=== PATIENT | female | born 1980 | race Caucasian/White ===

== ENCOUNTER 2023-12-29 22:49 | Emergency (ER) | payer BC, SELFPAY ==
[2023-12-29 22:52] VITALS: BP 114/63
--- NOTE | 2023-12-29 23:33 | ED.GENMED ---
History of Present Illness
General
Chief Complaint: Abdominal Pain
Source: patient
Exam Limitations: none
Time Seen by Provider: 12/29/23 23:24
History of Present Illness
History of Present Illness:
See MDM
Past History
Past History
ED Past Medical History: None
ED Past Surgical History: None
Social History
Tobacco: Non-smoker
Alcohol: None
Phy Exam
Physical Exam
Physical Exam:
See MDM
Course
Vital Signs
Initial and Last Documented VS:
Initial Vital Signs
Temp Pulse Resp BP Pulse Ox
98.1 F 69 16 114/63 100
12/29/23 22:52 12/29/23 22:52 12/29/23 22:52 12/29/23 22:52 12/29/23 22:52
Last Documented Vital Signs
Temp Pulse Resp BP Pulse Ox
98.1 F 61 16 114/82 100
12/29/23 22:52 12/29/23 23:35 12/29/23 23:35 12/29/23 23:35 12/29/23 23:35
MDM/Problems Addressed
Differential Diagnosis Includes:
HPI and MDM Narrative:
43-year-old female presenting with sudden right lower quadrant abdominal pain. This reminds her of a prior episode where she went to the hospital and was diagnosed with hemorrhagic cyst. [employer] believes she has intermittent ovarian torsion. Patient
was brought back immediately to the emergency department room. When I evaluated her, patient states all her symptoms are improving. I did suggest ultrasound blood work but since symptoms are improving, I think it is reasonable to have this done as
an outpatient. Patient states she wants to go home
Physical exam
General: Well appearing and non-toxic
HEENT: protecting airway
Neck: appears supple
CV: No evidence of cyanosis
Resp: No accessory muscle use
Abd: Non-distended. No significant tenderness
Extremities: No deformities
Neuro: alert
Psych: Normal affect
Skin: Intact
Problems Addressed including Acute and Chronic Conditions affecting care:
1. Resolved right lower quadrant abdominal pain
Acuity: acute
Prognosis: stable
Details: Given the sudden onset and sudden resolution, discussed likely intermittent ovarian torsion. This has been discussed by her [employer] in the past
Differential Diagnosis (but not limited to): Acute appendicitis, intermittent ovarian torsion, ruptured ovarian cyst
Testing considered: Pelvic ultrasound
Drug therapy (if applicable): OTC meds, please see d/c instruction regarding Rx drugs
Amount and/or Complexity of Data Reviewed
Clinical info obtained from: Patient
External data reviewed: N/A
Labs I independently reviewed (but not limited to): N/A
Radiology: N/A
Pulse Ox: not hypoxic
EKG independently reviewed: N/A
Telephone Answering Service Operator: N/A
Critical Care: N/A
Risk of Complication:
Social Determinants of health: Good social support
Discussed with other providers: N/A
Escalation of Care includes Admit/Obs: After being observed in the Emergency Department, pt stable for discharge.
Occasional wrong word or 'sound a like' substitutions may have occurred due to the inherent limitations of voice recognition software. Read the chart carefully and recognize, using context, where substitutions have occurred.
*Critical Care Note
Total Time (30-74mins, 75-104mins- exclusive of procedures): Not Applicable
ED Attending Note
-
Portions of this chart may have been created with voice recognition software.� Occasional wrong word or��sound alike� substitutions may have occurred due to the inherent limitations of voice recognition software.
Discharge Plan
Departure
Patient Disposition: Home (Routine Discharge)
Date of Disposition: 12/29/23
Time of Disposition: 23:35
Patient with high blood pressure during this ER visit?: No
Discharge Problem:
Pelvic pain
Activity Restrictions/Additional Instructions:
As we discussed, your symptoms are for possible intermittent ovarian torsion. If symptoms persist, please return. Otherwise, please talk to your [employer].
Interventions
Interventions:
*Risk Screen - Suicide Last Done: 12/29/23 22:51
*General Assessment Last Done: 12/29/23 22:52
*Neglect/Abuse Screening Last Done: 12/29/23 22:51
ED- Fall Risk Assessment Last Done: 12/29/23 23:25
*ED COVID-19 Vaccine History Last Done: 12/29/23 23:40
*Nursing Disposition Last Done: 12/29/23 23:40
VI-Ykobhl-Logyqoewyj Assessment Last Done: 12/29/23 23:25
Discharge Date and Time
Discharge Date/Time: 12/29/23 23:45
Print Language: TAJIK
[2023-12-29 23:35] VITALS: BP 114/82
== END 2023-12-29 23:45 | disposition home or self-care (01) ==
LOC: EMR 22:49
PROVIDERS: EMERGENCY PHYSICIAN Student in an Organized Health Care Education/Training Program; FAMILY PHYSICIAN Family Medicine
DX: R10.2 Pelvic and perineal pain (principal)
CPT/HCPCS: 99282